=== PATIENT | female | born 1990 ===

== ENCOUNTER 2021-07-01 18:06 | Emergency (ER) | payer OTHER ==
[2021-07-01 18:11] VITALS: BMI 23.6
[2021-07-01] MEDS ORDERED: SODIUM CHLORIDE 0.9% 500 ML INFUS.BAG IV ONE (19:53)
[2021-07-01] MEDS ORDERED: METOCLOPRAMIDE HCL INJECTION 10 MG/2 ML VIAL IVPUSH ONE (19:54)
[2021-07-01] MEDS ORDERED: METOCLOPRAMIDE HCL INJECTION 10 MG/2 ML VIAL ONE (20:17)
[2021-07-01 20:25] LABS: BASO % 0.4 % (0-2.0); EOS % 0.8 % (0-4.5); HEMATOCRIT 32.9 % (32.4-45.2); HEMOGLOBIN 11.5 GM/dL (10.7-15.3); MCH 32.5 pg (25.7-33.7); MCHC 34.9 g/dl (32.0-36.0); MEAN PLT VOLUME 9.2 fl (7.5-11.1); NEUT % 74.8 % (42.8-82.8); PLATELET COUNT 170 10^3/uL (134-434); RBC 3.54 M/mm3 (3.60-5.2); RDW 16.8 % (11.6-15.6); WHITE BLOOD COUNT 8.7 K/mm3 (4.0-10.0)
[2021-07-01 20:38] LABS: URINE APPEARANCE CLEAR; URINE BILIRUBIN NEGATIVE (NEGATIVE); URINE COLOR YELLOW; URINE GLUCOSE (UA) NEGATIVE (NEGATIVE); URINE KETONE NEGATIVE (NEGATIVE); URINE LEUK ESTERASE NEGATIVE (NEGATIVE); URINE NITRITE NEGATIVE (NEGATIVE); URINE PROTEIN NEGATIVE (NEGATIVE); URINE UROBILINOGEN 0.2 mg/dL (0.2-1.0)
[2021-07-01 20:42] LABS: CHLORIDE 106 mmol/L (98-107); SODIUM 132 mmol/L (136-145)
[2021-07-01 20:44] LABS: ALBUMIN 3.1 g/dl (3.4-5.0); BLOOD UREA NITROGEN 8.5 mg/dL (7-18); CALCIUM 8.9 mg/dL (8.5-10.1); CO2 24 mmol/L (21-32); GLUCOSE,RANDOM 71 mg/dL (74-106)
[2021-07-01 20:47] LABS: CREATININE 0.6 mg/dL (0.55-1.3); SGOT/AST 81 U/L (15-37)
[2021-07-01 20:49] LABS: BILIRUBIN,TOTAL 0.4 mg/dL (0.2-1); TOT PROT 7.5 g/dl (6.4-8.2)
[2021-07-01 20:50] LABS: ALK PHOS 133 U/L (45-117)
[2021-07-01 21:05] LABS: ANION GAP 2 MMOL/L (8-16); SGPT/ALT 25 U/L (13-61)
[2021-07-01 22:54] LABS: CALCIUM 8.2 mg/dL (8.5-10.1)
[2021-07-01 22:55] LABS: BLOOD UREA NITROGEN 7.3 mg/dL (7-18)
[2021-07-01 22:58] LABS: CREATININE 0.5 mg/dL (0.55-1.3)
[2021-07-01 23:47] VITALS: BP 104/65; PULSE 81; TEMP 97.5
== END 2021-07-01 23:40 | disposition home or self-care (01) ==
LOC: JER 18:06 → JERFT 18:06
PROC: 3E033GC Introduction of Other Therapeutic Substance into Peripheral Vein, Percutaneous Approach (ICD-10-PCS; principal; 2021-07-01)
DX: O26.893 Other specified pregnancy related conditions, third trimester (principal); R42 Dizziness and giddiness; R51.9 Headache, unspecified; Z3A.32 32 weeks gestation of pregnancy
CPT/HCPCS: 36415; 80048; 80053; 81003; 85025; 99284-25

== ENCOUNTER 2021-08-21 18:09 | Inpatient (IN) | payer OTHER ==
[2021-08-21] MEDS ORDERED: OXYTOCIN 30 UNITS in 0.9% NS 30 UNIT/500 ML INFUS.BAG IVPB SCH (19:30)
[2021-08-21] MEDS: ELECTROLYTE-148 SOLN 1,000 ML IV SCH (20:35)
[2021-08-21 21:12] VITALS: BMI 25.9
[2021-08-21 21:21] LABS: BASO % 0.3 % (0-2.0); EOS % 1.2 % (0-4.5); HEMATOCRIT 33.3 % (32.4-45.2); HEMOGLOBIN 11.5 GM/dL (10.7-15.3); LYMPH % 22.3 % (8-40); MCH 31.3 pg (25.7-33.7); MCHC 34.5 g/dl (32.0-36.0); MEAN CELL VOLUME 90.7 fl (80-96); MEAN PLT VOLUME 10.3 fl (7.5-11.1); MONO % 8.1 % (3.8-10.2); NEUT % 68.1 % (42.8-82.8); PLATELET COUNT 172 10^3/uL (134-434); RBC 3.67 M/mm3 (3.60-5.2); RDW 13.7 % (11.6-15.6); WHITE BLOOD COUNT 9.5 K/mm3 (4.0-10.0)
[2021-08-21 21:49] LABS: BLOOD UREA NITROGEN 6.1 mg/dL (7-18)
[2021-08-21 21:53] LABS: CREATININE 0.6 mg/dL (0.55-1.3)
[2021-08-21 21:57] LABS: INR 0.88 (0.83-1.09); PROTHROMBIN TIME (PATIENT) 10.1 SEC (9.7-13.0)
[2021-08-21 22:00] LABS: ACTIVATED PTT 23.5 SECONDS (25.2-36.5)
[2021-08-21] MEDS ORDERED: OXYTOCIN 30 UNITS in 0.9% NS 30 UNIT/500 ML INFUS.BAG IVPB ONE (23:23)
[2021-08-22] MEDS: ELECTROLYTE-148 SOLN 1,000 ML IV SCH (01:40)
[2021-08-22] MEDS ORDERED: BUPIVACAINE HCL/PF 0.25% (2.5MG/ML) 10 ML VIAL ONE ×2 (10:55→15:07)
[2021-08-22] MEDS ORDERED: LIDOCAINE 1%/EPI 1:100000 (20 ML MULTI DOSE VIAL) ONE (11:03)
[2021-08-22] MEDS ORDERED: LIDOCAINE HCL/EPINEPHRINE/PF 20 ML VIAL ONE (11:03)
[2021-08-22] MEDS ORDERED: FENTANYL/BUPIVACAINE/NS/PF - PCEA - 50 ML DISP.SYRIN EP ONE ×2 (11:25→15:17)
[2021-08-22] MEDS ORDERED: NALOXONE HCL 0.4 MG/ML VIAL IVPUSH PRN (12:54)
[2021-08-22] MEDS ORDERED: FENTANYL/BUPIVACAINE/NS/PF - PCEA - 50 ML DISP.SYRIN EP SCH (13:00)
[2021-08-22] MEDS ORDERED: OXYTOCIN 20 UNITS in 0.9% NS 20 UNIT/1,000 ML INFUS.BAG IV ONE (14:56)
[2021-08-22] MEDS ORDERED: LIDOCAINE HCL 1% PRESERVATIVE FREE - 30ML VIAL ONE (14:56)
[2021-08-22 17:43] LABS: CORD BASE EXCESS -5.1 mmol/L (0-2); CORD HCO3 20.8 mmHg (20-29); CORD PCO2 41.6 mmHg (30-78); CORD pH 7.316 (7.14-7.44)
[2021-08-22] MEDS ORDERED: BENZOCAINE 20% 57 GM BOTTLE TP PRN (18:03)
[2021-08-22] MEDS ORDERED: BENZOCAINE 28 GM HEMORRHOIDAL OINTMENT TP PRN (18:03)
[2021-08-22] MEDS ORDERED: BISACODYL 10 MG SUPP.RECT RC PRN (18:03)
[2021-08-22] MEDS ORDERED: METHYLERGONOVINE MALEATE 0.2 MG/1 ML AMP IM PRN (18:03)
[2021-08-22] MEDS ORDERED: WITCH HAZEL 50% (TUCKS) 40 PAD/JAR PAD TP PRN (18:03)
[2021-08-22] MEDS ORDERED: ACETAMINOPHEN 325 MG TABLET (FP) PO PRN (18:03)
[2021-08-22] MEDS ORDERED: OXYTOCIN 20 UNITS in 0.9% NS 20 UNIT/1,000 ML INFUS.BAG IV SCH (18:15)
[2021-08-22] MEDS: IBUPROFEN 600 MG TABLET (FP) PO PRN (18:20)
[2021-08-23] MEDS: IBUPROFEN 600 MG TABLET (FP) PO PRN ×3 (06:17→20:08)
[2021-08-23 06:39] LABS: BASO % 0.3 % (0-2.0); EOS % 0.8 % (0-4.5); HEMOGLOBIN 11.4 GM/dL (10.7-15.3); LYMPH % 15.1 % (8-40); MCH 31.6 pg (25.7-33.7); MCHC 34.4 g/dl (32.0-36.0); MEAN CELL VOLUME 91.7 fl (80-96); MEAN PLT VOLUME 9.7 fl (7.5-11.1); MONO % 5.5 % (3.8-10.2); NEUT % 78.3 % (42.8-82.8); PLATELET COUNT 168 10^3/uL (134-434); RDW 13.8 % (11.6-15.6); WHITE BLOOD COUNT 10.4 K/mm3 (4.0-10.0)
[2021-08-23] MEDS: PRENATAL VITAMINS W/ FOLIC ACID TABLET (FP) PO SCH (09:33)
[2021-08-23] MEDS ORDERED: SENNOSIDES/DOCUSATE COMBO (SENNA PLUS) TABLET (UD) PO PRN (22:00)
[2021-08-24] MEDS: IBUPROFEN 600 MG TABLET (FP) PO PRN (06:00)
[2021-08-24 09:22] VITALS: BP 95/61; PULSE 64; TEMP 98.3
[2021-08-24] MEDS: PRENATAL VITAMINS W/ FOLIC ACID TABLET (FP) PO SCH (10:53)
== END 2021-08-24 13:05 | disposition home or self-care (01) | DRG 560 ==
LOC: JDEL 18:09 → JLDR 18:50 → J3W 08-22 17:55
PROVIDERS: ADMIT Obstetrics & Gynecology; ATTEND Obstetrics & Gynecology
PROC: 10E0XZZ Delivery of Products of Conception, External Approach (ICD-10-PCS; principal; 2021-08-22)
PROC: 0W8NXZZ Division of Female Perineum, External Approach (ICD-10-PCS; 2021-08-22)
PROC: 10907ZC Drainage of Amniotic Fluid, Therapeutic from Products of Conception, Via Natural or Artificial Opening (ICD-10-PCS; 2021-08-22)
DX: O63.0 Prolonged first stage (of labor) (principal); O70.0 First degree perineal laceration during delivery; Z3A.40 40 weeks gestation of pregnancy; Z37.0 Single live birth
CPT/HCPCS: 36415; 36600; 59409; 80048; 82803; 85025; 85610; 85730; 86762; 86780; 86850; 86900; 86901; C9803-CS; U0003; U0005